=== PATIENT | female | born 1955 | race African-American/Black ===

== ENCOUNTER 2019-03-16 20:19 | Inpatient (IN) | payer OTHER ==
--- OUTSIDE RECORDS SUMMARY | 2019-03-16 20:21 | XMS REPORT ---
:1955 [facility] Team Providers Name Role Phone Laron Mendez Provider Role Unavailable Allergies, Adverse Reactions, Alerts Substance Reaction Event Type Hydrocodone Bitartrate stomach upset Drug Allergy Problems Problem Type Condition Code Onset Dates Condition Status Assessment Primary osteoarthritis of left knee M17.12 Active Assessment Primary osteoarthritis of right M17.11 Active knee Assessment Pain, joint, knee, left M25.562 Active Assessment Pain, joint, knee, right M25.561 Active Problem Hypertension, unspecified type I10 Active Problem Gastro-esophageal reflux K21.9 Active Problem Morbid obesity E66.01 Active Problem Controlled type 2 diabetes mellitus E11.9 Active without complication, without long-term current use of insulin Problem Vitamin D deficiency E55.9 Active Problem Diabetes E11.9 Active Problem Benign essential HTN I10 Active Problem Primary osteoarthritis of right M17.11 Active knee Problem Left leg pain M79.605 Active Problem Hyperlipidemia, unspecified E78.5 Active hyperlipidemia type Problem Left shoulder pain, unspecified M25.512 Active chronicity Problem Primary osteoarthritis of left knee M17.12 Active Problem Gastroesophageal reflux disease, K21.9 Active esophagitis presence not specified Problem Dietary counseling and surveillance Z71.3 Active Problem Leukocytosis, unspecified type D72.829 Active Problem Hyperpigmented skin lesion L81.9 Active Problem BMI 50.0-59.9, adult Z68.43 Active Problem Other chronic pain G89.29 Active Problem Pain in right knee M25.561 Active Problem Low back pain M54.5 Active Problem Chronic pain syndrome G89.4 Active Problem Multiple joint pain M25.50 Active Problem Hyperlipemia E78.5 Active Problem Obstructive sleep apnea G47.33 Active Problem Osteoarthritis M19.90 Active Medications Medication Code Code Instructions Start End Status Dosage System Date Date Allopurinol [facility] 70845225095 100 MG Orally Aug 28November Active 1 tablet Once a day 2018 OneTouch SAIC [facility] 61513557922 - Active TEST BLOOD Test [facility]CE [facility] 2 % Transdermal Active 2 applications Twice a day to affected area Tylenol # 3 NDC 0 30-500-15 MG Active 2 tablets as Orally every 6 needed hrs Vytorin [facility] 35449545855 10-20 MG Orally Active 1 tablet in Once daily evening Cozaar [facility] 54886141078 50 MG Orally Active 1 tablet Once a day Ultracet [facility] 18147089956 37.5-325 MG February Active 1 tablet as Orally Twice 30, 17, needed for daily 2017 2018 pain Blood Pressure [facility] 30993441887 - Monitor BP Apr 05, Active as directed Monitor at least 2-3 2018 Automat days per week, as well as prn Vitamin D [facility] 89500975523 2000 UNIT Active 1 capsule Orally Once a day Augmentin [facility] 69927961474 500-125 MG Active not defined Orally Tessalon [facility] 67828278232 100 MG Orally Active 1 capsule as Perles Three times a needed day losartan NDC 0 Active not defined Metformin HCl [facility] 04628273223 500 MG Orally Active 1 tablet with Twice a day meals Low-Dose NDC 0 81 MG Orally Active 1 tablet Aspirin Once a day Amiloride-Hydr [facility] 43130177815 5-50 MG Orally Active 1 tablet with ochlorothiazid Once a day food e OneTouch [facility] 44451096247 - Active TEST BLOOD Delica Lancets SUGAR ONCE 33G DAILY Results No Known Results Summary Purpose eClinicalWorks Submission
--- OUTSIDE RECORDS SUMMARY | 2019-03-16 20:22 | XMS REPORT ---
:1955 Author [facility] Team Providers Name Role Phone Indigo Joel Provider Role Unavailable Allergies, Adverse Reactions, Alerts Substance Reaction Event Type Hydrocodone Bitartrate stomach upset Drug Allergy Problems Problem Type Condition Code Onset Dates Condition Status Assessment Hyperlipidemia, unspecified E78.5 Active hyperlipidemia type Assessment Gastroesophageal reflux disease, K21.9 Active esophagitis presence not specified Assessment Peripheral edema R60.9 Active Assessment Controlled type 2 diabetes mellitus E11.9 Active without complication, without long-term current use of insulin Assessment Depression screening Z13.31 Active Assessment Hypertension, unspecified type I10 Active Problem Hypertension, unspecified type I10 Active Problem Controlled type 2 diabetes mellitus E11.9 Active without complication, without long-term current use of insulin Problem Gastroesophageal reflux disease, K21.9 Active esophagitis presence not specified Problem Vitamin D deficiency E55.9 Active Problem Benign essential HTN I10 Active Problem Left shoulder pain, unspecified M25.512 Active chronicity Problem Diabetes E11.9 Active Problem Dietary counseling and surveillance Z71.3 Active Problem Leukocytosis, unspecified type D72.829 Active Problem Primary osteoarthritis of right M17.11 Active knee Problem Peripheral edema R60.9 Active Problem Chronic pain syndrome G89.4 Active Problem Low back pain M54.5 Active Problem Primary osteoarthritis of left knee M17.12 Active Problem Hyperlipidemia, unspecified E78.5 Active hyperlipidemia type Problem BMI 50.0-59.9, adult Z68.43 Active Problem Hyperpigmented skin lesion L81.9 Active Problem Depression screening Z13.31 Active Problem Left leg pain M79.605 Active Assessment Vitamin D deficiency E55.9 Active Problem Obstructive sleep apnea G47.33 Active Assessment Leukocytosis, unspecified type D72.829 Active Problem Osteoarthritis M19.90 Active Assessment BMI 50.0-59.9, adult Z68.43 Active Problem Other chronic pain G89.29 Active Assessment Morbid obesity E66.01 Active Problem Pain in right knee M25.561 Active Problem Gastro-esophageal reflux K21.9 Active Assessment Chronic pain syndrome G89.4 Active Problem Morbid obesity E66.01 Active Problem Multiple joint pain M25.50 Active Problem Hyperlipemia E78.5 Active Medications Medication Code Code Instructions Start End Status Dosage System Date Date Allopurinol [facility] 96874304767 100 mg Orally October Active 1 tablet Once a day 2019 Blood Pressure [facility] 07560688451 - Monitor BP Apr 05, Active as directed Monitor at least 2-3 2018 Automat days per week, as well as prn Pennsaid [facility] 05275265608 2 % Transdermal Active 2 applications Twice a day to affected area Augmentin [facility] 39842372566 500-125 MG Active not defined Orally Vytorin [facility] 96452001281 10-20 MG Orally Active 1 tablet in Once daily evening Cozaar [facility] 99812193326 50 MG Orally Active 1 tablet Once a day Metformin HCl [facility] 62600479655 500 MG Orally Active 1 tablet with Twice a day meals OneTouch [facility] 65627698742 - Active TEST BLOOD Delica Lancets SUGAR ONCE 33G DAILY OneTouch Ultra [facility] 44044168379 - Active TEST BLOOD Test SUGAR ONCE DAILY Tylenol # 3 NDC 0 30-500-15 MG Active 2 tablets as Orally every 6 needed hrs losartan NDC 0 Active not defined Tessalon [facility] 56723641814 100 MG Orally Active 1 capsule as Perles Three times a needed day Amiloride-Hydr [facility] 51412382017 5-50 MG Orally Active 1 tablet with ochlorothiazid Once a day food e Ultracet [facility] 13476121576 37.5-325 MG FebruaryMar 29, Active 1 tablet as Orally Twice 2018 needed for daily 2017 severe pain Low-Dose NDC 0 81 MG Orally Active 1 tablet Aspirin Once a day Vitamin D [facility] 02228771559 2000 UNIT Active 1 capsule Orally Once a day Results No Known Results Summary Purpose eClinicalWorks Submission
--- OUTSIDE RECORDS SUMMARY | 2019-03-16 20:22 | XMS REPORT ---
:1955 [facility] Team Providers Name Role Phone Laron Mendez Provider Role Unavailable Allergies, Adverse Reactions, Alerts Substance Reaction Event Type Hydrocodone Bitartrate stomach upset Drug Allergy Problems Problem Type Condition Code Onset Dates Condition Status Assessment Primary osteoarthritis of right M17.11 Active knee Assessment Pain, joint, knee, left M25.562 Active Assessment Pain, joint, knee, right M25.561 Active Assessment Primary osteoarthritis of left knee M17.12 Active Problem Hypertension, unspecified type I10 Active [...] End Status Dosage System Date Date Allopurinol [facility] 62265118151 100 MG Orally Aug 28November Active 1 tablet Once a day 2018 OneTouch Vicarious [facility] 21295847347 - Active TEST BLOOD Test [facility] % Transdermal Active 2 applications Twice a day to affected area Tylenol # 3 NDC 0 30-500-15 MG Active 2 tablets as Orally every 6 needed hrs Vytorin [facility] 74413092098 10-20 MG Orally Active 1 tablet in Once daily evening Metformin HCl [facility] 48850180175 500 MG Orally Active 1 tablet with Twice a day meals Blood Pressure [facility] 54351515244 - Monitor BP Apr 05, Active as directed Monitor at least 2-3 2018 Automat days per week, as well as prn Vitamin D [facility] 90868923943 2000 UNIT Active 1 capsule Orally Once a day losartan NDC 0 Active not defined Augmentin [facility] 15074700848 500-125 MG Active not defined Orally Tessalon [facility] 91372435881 100 MG Orally Active 1 capsule as Perles Three times a needed day Low-Dose NDC 0 81 MG Orally Active 1 tablet Aspirin Once a day Amiloride-Hydr [facility] 00420811358 5-50 MG Orally Active 1 tablet with ochlorothiazid Once a day food e Cozaar [facility] 65885723357 50 MG Orally Active 1 tablet Once a day OneTouch [facility] 36076014650 - Active TEST BLOOD Delica Lancets SUGAR ONCE 33G DAILY Results No Known Results Summary Purpose eClinicalWorks Submission
--- OUTSIDE RECORDS SUMMARY | 2019-03-16 20:22 | XMS REPORT ---
:1955 [facility] Team Providers Name Role Phone Laron Mendez Provider Role Unavailable Allergies, Adverse Reactions, Alerts Substance Reaction Event Type Hydrocodone Bitartrate stomach upset Drug Allergy Problems Problem Type Condition Code Onset Dates Condition Status Assessment Pain, joint, knee, right M25.561 Active Assessment Primary osteoarthritis of right M17.11 Active knee Assessment Pain, joint, knee, left M25.562 Active Assessment Primary osteoarthritis of left knee [...] Active Problem Left leg pain M79.605 Active Problem Obstructive sleep apnea G47.33 Active Problem Osteoarthritis M19.90 Active Problem Other chronic pain G89.29 Active Problem Pain in right knee M25.561 Active Problem Gastro-esophageal reflux K21.9 Active Problem Morbid obesity E66.01 Active Problem Multiple joint pain M25.50 Active Problem Hyperlipemia E78.5 Active Medications Medication Code Code Instructions Start End Status Dosage System Date Date losartan NDC 0 Active not defined Metformin HCl [facility] 02432050579 500 MG Orally Active 1 tablet with Twice a day meals Augmentin [place] 68998718080 500-125 MG Active not defined Orally Allopurinol ND 66521063090 100 mg Orally October Active 1 tablet Once a day 2019 OneTouch Ultra [facility] 54951435422 - Active TEST BLOOD Test SUGAR ONCE DAILY Ultracet [facility] 23582382993 37.5-325 MG FebruaryMar 29, Active 1 tablet as Orally Twice 2018 needed for daily 2017 severe pain Vitamin D [facility] 10829264462 2000 UNIT Active 1 capsule Orally Once a day Vytorin [facility] 00922114954 10-20 MG Orally Active 1 tablet in Once daily evening Cozaar [facility] 85916961350 50 MG Orally Active 1 tablet Once a day Pennsaid [facility] 17650622158 2 % Transdermal Active 2 applications Twice a day to affected area Tessalon [facility] 31874805405 100 MG Orally Active 1 capsule as Perles Three times a needed day Tylenol # 3 NDC 0 30-500-15 MG Active 2 tablets as Orally every 6 needed hrs Blood Pressure [facility] 08176311027 - Monitor BP Apr 05, Active as directed Monitor at least 2-3 2018 Automat days per week, as well as prn Low-Dose NDC 0 81 MG Orally Active 1 tablet Aspirin Once a day OneTouch [facility] 66671223008 - Active TEST BLOOD Delica Lancets SUGAR ONCE 33G DAILY Amiloride-Hydr [facility] 24033659628 5-50 MG Orally Active 1 tablet with ochlorothiazid Once a day food e Results No Known Results Summary Purpose eClinicalWorks Submission
--- OUTSIDE RECORDS SUMMARY | 2019-03-16 20:22 | XMS REPORT ---
:1955 Author Organization eClinicalWorks Care Team Providers Name Role Phone Indigo Joel Provider Role Unavailable Allergies No Known Allergies Problems Problem Type Condition Code Onset Dates Condition Status Problem Hypertension, unspecified type I10 Active Problem [...] M25.50 Active Problem Hyperlipemia E78.5 Active Medications No Known Medications Results No Known Results Summary Purpose [employer] Submission
--- OUTSIDE RECORDS SUMMARY | 2019-03-16 20:22 | XMS REPORT ---
[...] Medications Results No Known Results Summary Purpose [facility]ClinicalMiappi Submission
--- OUTSIDE RECORDS SUMMARY | 2019-03-16 20:22 | XMS REPORT ---
:1955 Author Organization eClinicalWorks Care Team Providers Name Role Phone Laron Mendez Provider Role Unavailable Allergies No Known Allergies [...] Medications Results No Known Results Summary Purpose [employer]Clinical[facility] Submission
--- OUTSIDE RECORDS SUMMARY | 2019-03-16 20:22 | XMS REPORT ---
:1955 [facility] Team Providers Name Role Phone Laron Mendez Provider Role Unavailable Allergies, Adverse Reactions, Alerts Substance Reaction Event Type Hydrocodone Bitartrate stomach upset Drug Allergy Problems Problem Type Condition Code Onset Dates Condition Status Assessment Pain, joint, knee, left M25.562 Active Assessment Primary osteoarthritis of right M17.11 Active knee Assessment Pain, joint, knee, right M25.561 Active [...] Start End Status Dosage System Date Date OneTouch ND 65896111238 - Active TEST BLOOD Delica Lancets SUGAR ONCE 33G DAILY OneTouch Ultra ND 24745375916 - Active TEST BLOOD Test SUGAR ONCE DAILY Cozaar [facility] 89306669929 50 MG Orally Active 1 tablet Once a day Amiloride-Hydr ND 25091984913 5-50 MG Orally Active 1 tablet with ochlorothiazid Once a day food e Tessalon [facility] 63532224051 100 MG Orally Active 1 capsule as Perles Three times a needed day Tylenol # 3 NDC 0 30-500-15 MG Active 2 tablets as Orally every 6 needed hrs Low-Dose NDC 0 81 MG Orally Active 1 tablet Aspirin Once a day Blood Pressure [facility] 75993143282 - Monitor BP Apr 05, Active as directed Monitor at least 2-3 2018 Automat days per week, as well as prn losartan ND 0 Active not defined Allopurinol [facility] 82028545763 100 mg Orally October Active 1 tablet Once a day 2019 Vytorin [facility] 44761464330 10-20 MG Orally Active 1 tablet in Once daily evening Metformin HCl [facility] 26186347774 500 MG Orally Active 1 tablet with Twice a day meals Augmentin [facility] 31451158386 500-125 MG Active not defined Orally Pennsaid [facility] 46564112879 2 % Transdermal Active 2 applications Twice a day to affected area Ultracet [facility] 83381447811 37.5-325 MG FebruaryMar 29, Active 1 tablet as Orally Twice 2018 needed for daily 2017 severe pain Vitamin D [facility] 05805555763 2000 UNIT Active 1 capsule Orally Once a day Results No Known Results Summary Purpose eClinicalWorks Submission
--- OUTSIDE RECORDS SUMMARY | 2019-03-16 20:22 | XMS REPORT ---
:1955 [facility] Team Providers Name Role Phone [...] Start End Status Dosage System Date Date Low-Dose NDC 0 81 MG Orally Active 1 tablet [facility]irin [facility] 68204722774 2 % Transdermal Active 2 applications Twice a day to affected area Vitamin D [facility] 59807657518 2000 UNIT Active 1 capsule Orally Once a day losartan ND 0 Active not defined Amiloride-Hydr [facility] 55762821967 5-50 MG Orally Active 1 tablet with ochlorothiazid Once a day food e Cozaar [facility] 00605362862 50 MG Orally Active 1 tablet Once a day Vytorin [facility] 33546197464 10-20 MG Orally Active 1 tablet in Once daily evening Tessalon [facility] 17340991835 100 MG Orally Active 1 capsule as Perles Three times a needed day Augmentin [facility] 88669332449 500-125 MG Active not defined Orally OneTouch [facility] 83741276092 - Active TEST BLOOD Delica Lancets SUGAR ONCE 33G DAILY OneTouch Ultra [facility] 98723986572 - Active TEST BLOOD Test SUGAR ONCE DAILY Blood Pressure [facility] 53111202273 - Monitor BP Apr 05, Active as directed Monitor at least 2-3 2018 Automat days per week, as well as prn Tylenol # 3 ND 0 30-500-15 MG Active 2 tablets as Orally every 6 needed hrs Metformin HCl [facility] 73565439077 500 MG Orally Active 1 tablet with Twice a day meals Allopurinol [facility] 08356629461 100 mg Orally October Active 1 tablet Once a day 2019 Ultracet [facility] 24817992728 37.5-325 MG FebruaryMar 29, Active 1 tablet as Orally Twice 2018 needed for daily 2017 severe pain Results No Known Results Summary Purpose eClinicalWorks Submission
[2019-03-16] MEDS ORDERED: LEVALBUTEROL 1.25 MG/3 ML NEB ONE (21:07)
[2019-03-16 21:10] LABS: Absolute Lymphocytes (CBC) 2.3 K/uL (0.7-4.9); Hematocrit 38.5 % (36.0-45.0); Lymphocytes % 22.8 % (15.3-44.8); RBC Red Blood Cell Count 4.76 M/uL (3.86-4.86)
[2019-03-16 21:21] LABS: Protime INR 1.04
[2019-03-16 21:53] LABS: ALT/SGPT 24 U/L (12-78); AST/SGOT 20 U/L (15-37); Albumin 3.2 g/dL (3.4-5.0); Alkaline Phosphatase 74 U/L (45-117); BUN Blood Urea Nitrogen 13 mg/dL (7-18); Bicarbonate 29 mmol/L (21-32); Bilirubin Direct < 0.1 mg/dL (0-0.2); Bilirubin Total 0.2 mg/dL (0.2-1.0); Glucose Level 117 mg/dL (74-106); Magnesium 1.6 mg/dL (1.8-2.4); NT PRO-BNP 156 pg/mL (<125); Potassium 3.5 mmol/L (3.5-5.1); Protein, Total 7.7 g/dL (6.4-8.2); Sodium Level 141 mmol/L (136-145); Troponin (Emerg Dept Use Only) 0.11 ng/mL (0.0-0.045)
[2019-03-16] MEDS ORDERED: ASPIRIN 81 MG CHEWABLE TABLET ONE (22:04)
[2019-03-16] MEDS ORDERED: Magnesium Sulfate 2gm IVPB 2 G/50 ML BAG IV ONE (22:04)
--- NOTE | 2019-03-16 22:05 | ER ---
Nurse's Notes [facility] Name: Reyna Vasques Age: 64 yrs Sex: Female : 1955 Arrival Date: 03/16/2019 Time: 20:22 Bed 15 Private MD: Diagnosis: Acute systolic (congestive) heart failure;Acute diastolic (congestive) heart failure Presentation: 03/16 20:34 Presenting complaint: Patient states: My breathing has been getting more and more short la1 over the last couple months and my legs have been hurting me real bad. They are both swollen but the right one is giving me more trouble. Transition of care: patient was not received from another setting of care. Onset of symptoms was March 16, 2019. Risk Assessment: Do you want to hurt yourself or someone else? Patient reports no desire to harm self or others. Initial Sepsis Screen: Does the patient meet any 2 criteria? No. Patient's initial sepsis screen is negative. Does the patient have a suspected source of infection? No. Patient's initial sepsis screen is negative. Care prior to arrival: None. 20:34 Method Of Arrival: Wheelchair la1 20:34 Acuity: BARBARA 3 la1 Historical: - Allergies: 20:34 Codeine; la1 20:34 Hydrocodone-Acetaminophen; la1 - PMHx: 20:34 Diabetes - NIDDM; Hypertension; la1 - Immunization history:: Adult Immunizations up to date. - Social history:: Smoking status: Patient/guardian denies using tobacco. - Ebola Screening: : No symptoms or risks identified at this time. Screenin:11 Abuse screen: Denies threats or abuse. Nutritional screening: No deficits noted. jb4 Tuberculosis screening: No symptoms or risk factors identified. Fall Risk None identified. Assessment: 21:11 General: Appears in no apparent distress. uncomfortable, Behavior is calm, cooperative. jb4 Pain: Denies pain. Neuro: Level of Consciousness is awake, alert, obeys commands, Oriented to person, place, time, situation. Cardiovascular: Patient's skin is warm and dry. Rhythm is sinus tachycardia. Respiratory: Airway is patent Respiratory effort is even, labored, Respiratory pattern is regular, symmetrical, Breath sounds are clear bilaterally. GI: No deficits noted. No signs and/or symptoms were reported involving the gastrointestinal system. : No deficits noted. No signs and/or symptoms were reported regarding the genitourinary system. EENT: No deficits noted. No signs and/or symptoms were reported regarding the EENT system. Derm: Skin is intact, Skin is dry, Skin is normal, Skin temperature is warm. Musculoskeletal: Circulation, motion, and sensation intact. Range of motion: intact in all extremities. 21:30 Reassessment: Patient appears in no apparent distress at this time. Patient and/or jb4 family updated on plan of care and expected duration. Pain level reassessed. Patient is alert, oriented x 3, equal unlabored respirations, skin warm/dry/pink. Respiratory: Airway is patent Respiratory effort is even, unlabored, Respiratory pattern is regular, symmetrical, Breath sounds are clear bilaterally. 22:30 Reassessment: Patient appears in no apparent distress at this time. No changes from jb4 previously documented assessment. Patient and/or family updated on plan of care and expected duration. Pain level reassessed. Patient is alert, oriented x 3, equal unlabored respirations, skin warm/dry/pink. 23:30 Reassessment: Patient appears in no apparent distress at this time. Patient and/or jb4 family updated on plan of care and expected duration. Pain level reassessed. Patient is alert, oriented x 3, equal unlabored respirations, skin warm/dry/pink. 03/17 00:02 Reassessment: Report called to PRADIP Malone. jb4 Vital Signs: 03/16 20:37 BP 104 / 79; Pulse 118; Resp 20; Temp 98.2(O); Pulse Ox 97% on R/A; Weight 154.22 kg; la1 Height 5 ft. 4 in. (162.56 cm); 21:30 BP 119 / 60; Pulse 116; Resp 20; Pulse Ox 100% on R/A; jb4 22:30 BP 100 / 60; Pulse 122; Resp 24; Pulse Ox 93% on R/A; jb4 23:42 BP 104 / 62; Pulse 120; Resp 21; Pulse Ox 96% on R/A; jb4 20:37 Body Mass Index 58.36 (154.22 kg, 162.56 cm) la1 ED Course: 20:22 Patient arrived in ED. ds1 20:34 Arm band placed on left wrist. la1 20:35 Triage completed. la1 20:41 Mickail, Orion, PA is PHCP. [facility] 20:41 Bharathi Adamson MD is Attending Physician. [facility] 21:03 Chadd Llamas, RN is Primary Nurse. jb4 21:05 Initial lab(s) drawn, by me, sent to lab. EKG done, by ED staff, reviewed by Orion MUHAMMAD. Inserted saline lock: 20 gauge in right antecubital area, using aseptic technique. Blood collected. 21:06 Patient has correct armband on for positive identification. Placed in gown. Bed in low ak1 position. Call light in reach. Side rails up X2. Adult w/ patient. child monitor on. Pulse ox on. NIBP on. Door closed. Lights dimmed. Warm blanket given. 21:13 XRAY Chest (1 view) In Process Unspecified. EDMS 22:03 Anjana West MD is Hospitalizing Provider. [facility] 22:15 Assisted to bedside commode. ak1 22:19 Notified Nurse Practitioner and/or Physician Rn Cvicu of a critical lab result(s), aa1 d-dimer [id number]. 23:38 CT completed. Patient tolerated procedure well. Patient moved to CT via stretcher. Patient moved back from CT. 23:49 No provider procedures requiring assistance completed. Patient admitted, IV remains in jb4 place. Administered Medications: 21:05 Drug: Xopenex (3) 1.25 mg Route: Inhalation; la1 21:30 Follow up: Response: No adverse reaction jb4 22:15 Drug: Aspirin Chewable Tablet 324 mg Route: PO; jb4 23:57 Follow up: Response: No adverse reaction jb4 22:49 Drug: Lasix 20 mg Route: IVP; Site: right antecubital; jb4 23:57 Follow up: Response: No adverse reaction jb4 22:51 Drug: Magnesium Sulfate 2 grams Route: IVPB; Infused Over: 2 hrs; Site: right jb4 antecubital; 23:56 Follow up: Response: No adverse reaction; IV Status: Infusion continued upon admission; jb4 IV Intake: 25ml Intake: 23:56 IV: 25ml; Total: 25ml. jb4 Outcome: 22:04 Decision to Hospitalize by Provider. alis 03/17 00:32 Admitted to Tele accompanied by nurse, via wheelchair, room 409, with chart, Report jb4 called to PRADIP Malone Condition: stable Discharge instructions given to patient, family, Instructed on the need for admit, Demonstrated understanding of instructions. 00:33 Patient left the ED. jb4 Signatures: Dispatcher [employer] EDMS Rola Spring RN RN aa1 Orion Glez PA PA jmm Hagler, Ervin Yan, Katie ds1 Juve Gallegos RN RN la1 Keim Johnson RN RN ak1 Chadd Llamas RN RN jb4 Corrections: (The following items were deleted from the chart) 03/16 22:55 21:11 General: Appears in no apparent distress. uncomfortable, Behavior is calm, jb4 cooperative, la1 : 21:11 Pain: Denies pain. al1 4 : 21:11 Neuro: Level of Consciousness is awake, alert, obeys commands, Oriented to jb4 person, place, time, situation, al1 : 21:11 Cardiovascular: Patient's skin is warm and dry. Rhythm is sinus tachycardia la1 jb4 :55 21:11 Respiratory: Airway is patent Respiratory effort is even, labored, Respiratory jb4 pattern is regular, symmetrical, Breath sounds are clear bilaterally. la1 : 21:11 GI: No deficits noted. No signs and/or symptoms were reported involving the jb4 gastrointestinal system. la1 : 21:11 : No deficits noted. No signs and/or symptoms were reported regarding the jb4 genitourinary system. la1 : 21:11 EENT: No deficits noted. No signs and/or symptoms were reported regarding the jb4 EENT system. la1 :55 21:11 Derm: Skin is intact, Skin is dry, Skin is normal, Skin temperature is warm la1 jb4 :55 21:11 Musculoskeletal: Circulation, motion, and sensation intact. Range of motion: jb4 intact in all extremities, la1
--- NOTE | 2019-03-16 22:05 | EDPHYS ---
Physician Documentation [facility] Name: Reyna Vasques Age: 64 yrs Sex: Female : 1955 Arrival Date: 03/16/2019 Time: 20:22 Bed 15 Private MD: ED Physician Bharathi Adamson HPI: 03/16 20:47 This 64 yrs old Black Female presents to ER via Wheelchair with complaints of Breathing jmm Difficulty. 20:47 The patient has shortness of breath at rest. Onset: The symptoms/episode began/occurred jmm gradually, 2 week(s) ago. The patient's shortness of breath is aggravated by nothing, is alleviated by nothing. This is a 64 year old female with a history of dm, htn that presents to the ED with complaints of shortness of breath worsening over the past 2 week. Patient denies chest pain. States symptoms worsened today. Alos complains of swelling to her legs. . Historical: - Allergies: 20:34 Codeine; la1 20:34 Hydrocodone-Acetaminophen; la1 - PMHx: 20:34 Diabetes - NIDDM; Hypertension; la1 - Immunization history:: Adult Immunizations up to date. - Social history:: Smoking status: Patient/guardian denies using tobacco. - Ebola Screening: : No symptoms or risks identified at this time. ROS: 20:47 Constitutional: Negative for fever, chills, and weight loss, Cardiovascular: Negative jmm for chest pain, palpitations, and edema. 20:47 Abdomen/GI: Negative for abdominal pain, nausea, vomiting, diarrhea, and constipation. 20:47 Respiratory: Positive for shortness of breath. 20:47 MS/extremity: Positive for swelling. 20:47 All other systems are negative. Exam: 20:47 Constitutional: This is a well developed, well nourished patient who is awake, alert, jmm and in no acute distress. Head/Face: atraumatic. Eyes: EOMI, no conjunctival erythema appreciated ENT: Moist Mucus Membranes Neck: Trachea midline, Supple Chest/axilla: Normal chest wall appearance and motion. 20:47 Cardiovascular: Rate: tachycardic, Rhythm: regular. 20:47 Respiratory: the patient does not display signs of respiratory distress, Respirations: normal, Breath sounds: rales, that are mild, are scattered. 20:47 Abdomen/GI: Inspection: obese Bowel sounds: normal, Palpation: abdomen is soft and non-tender, in all quadrants. 20:47 Musculoskeletal/extremity: bilateral pedal edema. 20:47 Skin: Appearance: Color: normal in color. 20:47 Neuro: Orientation: is normal, Mentation: is normal, Memory: is normal. 20:47 Psych: Behavior/mood is pleasant, cooperative. Vital Signs: 20:37 BP 104 / 79; Pulse 118; Resp 20; Temp 98.2(O); Pulse Ox 97% on R/A; Weight 154.22 kg; la1 Height 5 ft. 4 in. (162.56 cm); 21:30 BP 119 / 60; Pulse 116; Resp 20; Pulse Ox 100% on R/A; jb4 22:30 BP 100 / 60; Pulse 122; Resp 24; Pulse Ox 93% on R/A; jb4 23:42 BP 104 / 62; Pulse 120; Resp 21; Pulse Ox 96% on R/A; jb4 20:37 Body Mass Index 58.36 (154.22 kg, 162.56 cm) la1 MDM: 20:47 Patient medically screened. [facility] 22:01 Data reviewed: vital signs, nurses notes. Counseling: I had a detailed discussion with peggy the patient and/or guardian regarding: the historical points, exam findings, and any diagnostic results supporting the discharge/admit diagnosis, lab results, the need for further work-up and treatment in the hospital. ED course: I discussed the patient with Dr. West whom accepted admission. . 03/16 20:46 Order name: Basic Metabolic Panel; Complete Time: 21:54 [facility] 03/16 20:46 Order name: CBC with Diff; Complete Time: 21:21 [facility] 03/16 20:46 Order name: LFT's; Complete Time: 21:54 [facility] 03/16 20:46 Order name: Magnesium; Complete Time: 21:54 [facility] 03/16 20:46 Order name: NT PRO-BNP; Complete Time: 21:54 [facility] 03/16 20:46 Order name: PT-INR; Complete Time: 21:24 [facility] 03/16 20:46 Order name: Troponin (emerg Dept Use Only); Complete Time: 21:54 [facility] 03/16 20:46 Order name: XRAY Chest (1 view); Complete Time: 10:02 [facility] 03/16 22:00 Order name: D-Dimer; Complete Time: 10:02 [facility] 03/16 22:58 Order name: Urine Dipstick--Ancillary (enter results); Complete Time: 10:02 [facility] 03/16 23:10 Order name: CBC with Automated Diff [facility] 03/16 23:10 Order name: CBC with Automated Diff; Complete Time: 10:02 [facility] 03/16 23:10 Order name: Comprehensive Metabolic Panel [facility] 03/16 23:10 Order name: Comprehensive Metabolic Panel; Complete Time: 10:02 [facility] 03/16 20:46 Order name: EKG; Complete Time: 20:49 [facility] 03/16 20:46 Order name: Cardiac monitoring; Complete Time: 21:05 [facility] 03/16 20:46 Order name: EKG - Nurse/Tech; Complete Time: 21:05 [facility] 03/16 20:46 Order name: IV Saline Lock; Complete Time: 21:06 [facility] 03/16 20:46 Order name: Labs collected and sent; Complete Time: 21:06 [facility] 03/16 20:46 Order name: O2 Per Protocol; Complete Time: 21:06 [facility] 03/16 20:46 Order name: O2 Sat Monitoring; Complete Time: 21:06 [facility] 03/16 22:23 Order name: CT Chest For PE Angio [facility] 03/16 23:10 Order name: CONS Pharmacy Consult [facility] 03/16 23:10 Order name: Regular [facility] 03/16 23:10 Order name: EKG Electrocardiogram [facility] 03/16 23:10 Order name: EKG Electrocardiogram [facility] Administered Medications: 21:05 Drug: Xopenex (3) 1.25 mg Route: Inhalation; la1 21:30 Follow up: Response: No adverse reaction jb4 22:15 Drug: Aspirin Chewable Tablet 324 mg Route: PO; jb4 23:57 Follow up: Response: No adverse reaction jb4 22:49 Drug: Lasix 20 mg Route: IVP; Site: right antecubital; jb4 23:57 Follow up: Response: No adverse reaction jb4 22:51 Drug: Magnesium Sulfate 2 grams Route: IVPB; Infused Over: 2 hrs; Site: right jb4 antecubital; 23:56 Follow up: Response: No adverse reaction; IV Status: Infusion continued upon admission; jb4 IV Intake: 25ml Disposition: 03/17 02:36 Co-signature as Attending Physician, Bharathi Adamson MD. Disposition: 03/16/19 22:04 Hospitalization ordered by Anjana West for Inpatient Admission. Preliminary diagnosis are Acute systolic (congestive) heart failure, Acute diastolic (congestive) heart failure. - Bed requested for Telemetry/MedSurg (Inpatient). - Status is Inpatient Admission. jb4 - Condition is Stable. - Problem is new. - Symptoms are unchanged. UTI on Admission? No Signatures: Dispatcher [employer] EDMS Orion Glez PA PA [facility] Juve Gallegos, RN RN laSabra Edwards RN RN Chadd Llamas RN RN [facility] Snow, MD FREDI Garvin Corrections: (The following items were deleted from the chart) 03/16 23:36 22:04 Hospitalization Ordered by Anjana West MD for Inpatient Admission. Preliminary cg diagnosis is Acute systolic (congestive) heart failure; Acute diastolic (congestive) heart failure. Bed requested for Telemetry/MedSurg (Inpatient). Status is Inpatient Admission. Condition is Stable. Problem is new. Symptoms are unchanged. UTI on Admission? No. [facility] 03/17 00:33 03/16 23:36 03/16/2019 22:04 Hospitalization Ordered by Anjana West MD for Inpatient jb4 Admission. Preliminary diagnosis is Acute systolic (congestive) heart failure; Acute diastolic (congestive) heart failure. Bed requested for Telemetry/MedSurg (Inpatient). Status is Inpatient Admission. Condition is Stable. Problem is new. Symptoms are unchanged. UTI on Admission? No. cg
[2019-03-16] MEDS ORDERED: FUROSEMIDE 20 MG/ 2ML VIAL ONE (22:46)
[2019-03-16 23:01] LABS: Urine Blood NEGATIVE (NEG); Urine Glucose NEGATIVE (NEG); Urine Protein NEGATIVE (NEG)
[2019-03-16] MEDS ORDERED: ACETAMINOPHEN 500 MG TAB PO PRN (23:04)
[2019-03-16] MEDS ORDERED: MORPHINE 2 MG/ML SYR IV PRN (23:04)
[2019-03-16] MEDS ORDERED: NA CHLORIDE 0.9% 1,000 ML IV SCH (23:45)
[2019-03-17 00:39] VITALS: BMI 59.4
[2019-03-17] MEDS: IPRATROPIUM BROM 0.5MG/2.5ML NEB SCH ×4 (02:00→20:20)
[2019-03-17 06:00] LABS: Absolute Lymphocytes (CBC) 2.4 K/uL (0.7-4.9); Basophils % 0.4 % (0-1.3); Hematocrit 35.6 % (36.0-45.0); Lymphocytes % 23.1 % (15.3-44.8); RBC Red Blood Cell Count 4.45 M/uL (3.86-4.86)
[2019-03-17 06:20] LABS: Bilirubin Total 0.3 mg/dL (0.2-1.0); Potassium 3.5 mmol/L (3.5-5.1); Protein, Total 7.3 g/dL (6.4-8.2)
--- NOTE | 2019-03-17 07:17 | P.HP ---
Certification for Inpatient Patient admitted to: Observation With expected LOS: <2 Midnights Patient will require the following post-hospital care: None Practitioner: I am a practitioner with admitting privileges, knowledge of patient current condition, hospital course, and medical plan of care. Services: Services provided to patient in accordance with Admission requirements found in Title 42 Section 412.3 of the Code of Federal Regulations Patient History Date of Service: 03/17/19 Reason for admission: Shortness of breath History of Present Illness: patient is a 64-year-old female who came to the hospital with difficulty breathing. Her respiratory status has slowly worsened over the last couple of months. She said over the last week it has been much worse. She decided to come into the hospital for further evaluation. In the emergency room she had multiple diagnostic studies including chest x-ray and a CT scan of the chest. The CT scan was completely unremarkable. There was no pneumonia, no pulmonary embolism, no cardiomegaly, no pulmonary edema, etc. Patient's BNP was also normal. However, patient exhibits signs of CHF with orthopnea, PND, and dyspnea on exertion which has worsened over the last week. Patient also has some swelling in the lower extremities. The shortness of breath and swelling were more pronounced when she went on a vacation to [place]. She was having a hard time catching her breath. She decided to come into the hospital for further evaluation. Allergies codeine Allergy (Verified 10/24/16 11:03) stomach pain hydrocodone [Hydrocodone] Allergy (Verified 10/24/16 11:03) Nausea/Vomiting Home Medications: Amiloride/Hydrochlorothiazide [Amiloride HCl-Hctz 5-50 mg Tab] 1 each PO DAILY 07/23/12 Ezetimibe/Simvastatin [Vytorin 10-20 mg Tablet] 1 each PO BEDTIME 07/23/12 Losartan Potassium 50 mg PO DAILY 07/23/12 Metformin HCl [Glucophage*] 500 mg PO BID 07/23/12 Aspirin 81 mg PO DAILY 10/07/15 Cholecalciferol (Vitamin D3) [Vitamin D3] 1,000 unit PO DAILY 10/20/16 Acetaminophen [Tylenol Extra Strength] 500 mg PO BID PRN 03/17/19 Allopurinol [Zyloprim] 100 mg PO DAILY 03/17/19 Tramadol HCl/Acetaminophen [Ultracet Tablet] 1 each PO BID 03/17/19 - Past Medical/Surgical History Has patient received pneumonia vaccine in the past: No Diabetic: Yes -: HTN -: Hyperlipedemia -: NIDDM -: Hernia -: Tubal ligation -: hernia repair - Family History Mother Medical History: Hypertension - Social History Smoking Status: Never smoker Alcohol use: No CD- Drugs: No Caffeine use: Yes Place of Residence: Home Review of Systems 10-point ROS is otherwise unremarkable Physical Examination - Vital Signs Temperature: 98.6 F Blood Pressure: 125/56 Pulse: 108 Respirations: 19 Pulse Ox (%): 95 - Physical Exam General: Alert, In no apparent distress, Oriented x3 HEENT: Atraumatic, PERRLA, Mucous membr. moist/pink, EOMI, Sclerae nonicteric Neck: Supple, 2+ carotid pulse no bruit, No LAD, Without JVD or thyroid abnormality Respiratory: Diminished, Expiratory wheezes Cardiovascular: Regular rate/rhythm, Normal S1 S2, No murmurs Gastrointestinal: Normal bowel sounds, Soft and benign, Non-distended, No tenderness Musculoskeletal: No clubbing, No swelling, No tenderness Integumentary: Tenderness/swelling Neurological: Normal gait, Normal speech, Normal strength at 5/5 x4 extr, Normal tone, Sensation intact, Cranial nerves 3-12 intact, Normal affect Lymphatics: No axilla or inguinal lymphadenopathy - Studies Laboratory Data (last 24 hrs) 03/16/19 21:05: PT 12.2, INR 1.04 03/16/19 21:05: WBC 10.2, Hgb 12.3, Hct 38.5, Plt Count 252 03/16/19 21:05: Sodium 141, Potassium 3.5, BUN 13, Creatinine 1.09, Glucose 117 H, Magnesium 1.6 L, Total Bilirubin 0.2, AST 20, ALT 24, Alkaline Phosphatase 74 Assessment & Plan - Problems (Diagnosis) (1) Dyspnea on exertion Current Visit: Yes Status: Acute (2) Orthopnea Current Visit: Yes Status: Acute (3) PND (paroxysmal nocturnal dyspnea) Current Visit: Yes Status: Acute (4) Type 2 diabetes mellitus Current Visit: Yes Status: Acute (5) Morbid obesity Current Visit: No Status: Acute - Plan 1. Echocardiogram 2. Outpatient Pulmonary evaluation for CPAP/ she has a diagnosis of sleep apnea 3. We will start patient on a Beta sheng 4. Cardiology consultation if echocardiogram is abnormal 5. gentle diuresis 6. Strict I's and O's 7. Repeat CXR 8. Daily weights 9. Education regarding diet and treatment of congestive heart failure - Advance Directives Does patient have a Living Will: No Does patient have a Durable POA for Healthcare: No
[2019-03-17] MEDS: ALBUTEROL 2.5 MG/3 ML NEB SOL NEB PRN ×2 (08:05→13:50)
[2019-03-17] MEDS: FUROSEMIDE 20 MG/ 2ML VIAL IV SCH ×2 (08:55→20:00)
--- NOTE | 2019-03-17 08:55 | RAD REPORT ---
EXAM DESCRIPTION: RAD - Chest Single View - 03/16/2019 9:11 pm CLINICAL HISTORY: Shortness of breath COMPARISON: October 2015 TECHNIQUE: AP portable chest image was obtained 2109 hours . FINDINGS: No peripheral mass or consolidation. Portable technique and body habitus contribute to acc entuate chest findings. Heart size is upper normal. Vasculature is mildly prominent. Fullness of each hilum matches prior imaging. No measurable pleural effusion and no pneumothorax. Shoulder joint dege nerative change noted and progressive from 2016. Thoracic spine degenerative changes are present but poorly visualized on this examination. No acute aortic findings suspected. IMPRESSION: No acute cardiopulmonary finding. Large body habitus and portable technique cause heart, vascular and lung changes to wall be accentuat ed. No clear change from the prior study.
[2019-03-17] MEDS ORDERED: ACETAMINOPHEN 500 MG TAB PO PRN (10:03)
--- NOTE | 2019-03-17 10:21 | EKG ---
Test Date: 2019-03-16 Test Time: 20:56:54 Treating Engineer Helper: SABA MEASUREMENT RESULTS: Intervals: Rate: 119 TX: 148 QRSD: 92 QT: 336 QTc: 472 [place]: P: 52 TX: 148 QRS: 10 T: 60 INTERPRETIVE STATEMENTS: Sinus tachycardia Possible Anterior infarct, age undetermined Abnormal ECG Compared to ECG 10/20/2016 16:33:31 Sinus rhythm no longer present Myocardial infarct finding still present Electronically Signed On 03-17-19 10:20:23 CDT by Lam Beck
[2019-03-17] MEDS: ALLOPURINOL 100 MG TAB PO SCH (11:13)
[2019-03-17] MEDS: TRAMADOL 37.5mg/APAP 325mg PER TAB PO SCH ×2 (11:14→21:00)
[2019-03-17] MEDS: ASPIRIN 81 MG CHEWABLE TABLET PO SCH (11:15)
[2019-03-17] MEDS: ONDANSETRON 4 MG/2 ML VIAL IV PRN (11:15)
[2019-03-17] MEDS: LOSARTAN POTASSIUM 50 MG TABLET PO SCH (11:15)
--- NOTE | 2019-03-17 15:04 | RAD REPORT ---
EXAM DESCRIPTION: RAD - Chest Single View - 03/17/2019 2:01 pm CLINICAL HISTORY: Abdominal pain, shortness of breath COMPARISON: March 16 TECHNIQUE: AP portable chest image was obtained 1258 hours . FINDINGS: Lung volumes are diminished compared to the prior study. Large body habitus and portable t echnique further accentuate chest findings. New or progressive lung parenchymal process is not suspec amirah. Hilar fullness has not changed. Heart and vasculature are normal. No measurable pleural effusion and no pneumothorax. No acute bony abnormality seen. No acute aortic findings suspected. IMPRESSION: No acute cardiopulmonary process. No significant change from comparison.
[2019-03-17] MEDS ORDERED: PNEUMOCOCCAL VACCINE 0.5 ML IMVAC ONE (18:00)
[2019-03-17] MEDS ORDERED: GLUCAGON 1 MG/VIAL IM PRN (18:14)
[2019-03-17] MEDS ORDERED: D50W 25 GM/50 ML SYRINGE IV PRN (18:14)
[2019-03-17] MEDS: INSULIN -REGULAR HUMAN 50 UNIT/0.5 ML ML SQ SCH (20:32)
[2019-03-17] MEDS ORDERED: NA CHLORIDE 0.9% 250 ML IV ONE (20:36)
[2019-03-18] MEDS ORDERED: GUAIFENESIN/CODEINE 5ML UCUP PO PRN (00:10)
[2019-03-18] MEDS: IPRATROPIUM BROM 0.5MG/2.5ML NEB SCH ×4 (01:15→20:30)
[2019-03-18] MEDS: INSULIN -REGULAR HUMAN 50 UNIT/0.5 ML ML SQ SCH ×4 (07:30→20:43)
[2019-03-18] MEDS: FUROSEMIDE 20 MG/ 2ML VIAL IV SCH ×2 (09:53→20:42)
[2019-03-18] MEDS: LOSARTAN POTASSIUM 50 MG TABLET PO SCH (09:53)
[2019-03-18] MEDS: TRAMADOL 37.5mg/APAP 325mg PER TAB PO SCH ×2 (09:53→20:40)
[2019-03-18] MEDS: ALLOPURINOL 100 MG TAB PO SCH (09:53)
[2019-03-18] MEDS: ASPIRIN 81 MG CHEWABLE TABLET PO SCH (09:53)
--- NOTE | 2019-03-18 11:09 | RAD REPORT ---
EXAM DESCRIPTION: CT - Chest For Pe Angio - 03/17/2019 6:21 am CLINICAL HISTORY: Shortness of breath, elevated d-dimer COMPARISON: None. TECHNIQUE: CT CHEST ANGIOGRAPHY WITH IV CONTRAST on 03/16/2019 10:23 PM CDT. MIPS reconstructions wer e generated. This exam was performed according to our departmental dose-optimization program, which includes autom ated exposure control, adjustment of the mA and/or kV according to patient size and/or use of iterati ve reconstruction technique. MIP images were generated. FINDINGS: Thoracic aorta is normal in course and caliber without aneurysm or dissection. Pulmonary a rteries are poorly opacified. There are no large central filling defects. The heart is normal in size. There is no pericardial effusion. Intrathoracic lymph nodes are not enla rged. There is no pleural effusion, pleural thickening or pneumothorax. Central airways are patent. Lungs a re clear with no consolidation, mass or interstitial lung disease. There are no acute abnormalities within the limited images of the upper abdomen. There are no acute osseous findings. No suspicious bony lesions. IMPRESSION: No aortic dissection or aneurysm. No large or central pulmonary embolus. No definite pne umonia. Electronically signed by: Donald Mohamud MD 03/17/2019 12:07 AM CDT Due to temporary technical issues with the PACS/Fluency reporting system, reports are being signed by the in house radiologist as a courtesy to ensure prompt reporting. The interpreting radiologist is f ully responsible for the content of the report.
--- NOTE | 2019-03-18 11:49 | P.PN ---
Subjective Date of Service: 03/18/19 Chief Complaint: Shortness of breath Patient seen and examined at bedside. No family at bedside. Chart reviewed and case discussed with nursing staff. Patient continues report shortness of breath, especially on exertion. She reports that she is unable to walk to her bathroom from the bed due to shortness of breath. Continues to be on oxygen at this time. States that she is not on any oxygen at home Review of Systems 10-point ROS is otherwise unremarkable Physical Examination - Vital Signs Temperature: 97.9 F Blood Pressure: 117/64 Pulse: 110 Respirations: 22 Pulse Ox (%): 94 - Physical Exam General: Alert, In no apparent distress (At rest), Oriented x3, Obese HEENT: Atraumatic, PERRLA, EOMI Neck: Supple, JVD not distended Respiratory: Diminished Cardiovascular: Regular rate/rhythm, Normal S1 S2 Gastrointestinal: Normal bowel sounds, No tenderness Musculoskeletal: No tenderness Integumentary: No rashes Neurological: Normal speech, Normal tone, Normal affect Lymphatics: No axilla or inguinal lymphadenopathy Assessment And Plan - Current Problems (Diagnosis) (1) Dyspnea on exertion Current Visit: Yes Status: Acute Plan: This was likely secondary to progressive heart failure versus morbid obesity versus sleep apnea -echocardiogram ordered, pending -CT scan of the chest negative for any acute abnormalities, including pulmonary embolism. -we will get cardiology consultation if the echocardiogram is abnormal. -continue IV diuresis with Lasix at this time. -continue fluid restriction and strict input/output monitor -continue medical management of heart failure at this time. (2) Orthopnea Current Visit: Yes Status: Acute (3) PND (paroxysmal nocturnal dyspnea) Current Visit: Yes Status: Acute (4) Type 2 diabetes mellitus Current Visit: Yes Status: Acute Plan: Continue Accu-Cheks and mild sliding scale at this time. Will adjust as needed. Qualifiers: Diabetes mellitus usp insulin use: without usp use Diabetes mellitus complication status: with hyperglycemia Qualified Code(s): E11.65 - Type 2 diabetes mellitus with hyperglycemia (5) Morbid obesity Current Visit: No Status: Chronic Plan: Dietitian consult placed -counseled on dietary modifications and lifestyle modifications - Plan DVT prophylaxis: Lovenox GI prophylaxis: Not needed Diet: Heart healthy/diabetic Disposition: Pending symptomatic improvement. Anticipate discharge in the next 24-48 hr pending clinical improvement.
--- NOTE | 2019-03-18 12:47 | ECHO ---
HEIGHT: 5 ft 4 in WEIGHT: 346 lb 8 oz DATE OF STUDY: 03/18/[address]: Jen Díaz MD 2-DIMENSIONAL: YES M.MODE: YES DOPPLER: YES COLOR FLOW: YES TDS: YES PORTABLE: NO DEFINITY: NO BUBBLE STUDY: NO DIAGNOSIS: SHORTNESS OF BREATH CARDIAC HISTORY: CATHERIZATION: NO SURGERY: NO PROSTHETIC VALVE: NO PACEMAKER: NO MEASUREMENTS (cm) DIASTOLIC (NORMALS) SYSTOLIC (NORMALS) IVSd 1.0 (0.6-1.2) LA Diam (1.9-4.0) LVEF 50% LVIDd 3.8 (3.5-5.7) LVIDs 2.9 (2.0-3.5) %FS 25% LVPWd 1.3 (0.6-1.2) Ao Diam 2.3 (2.0-3.7) 2 DIMENSIONAL ASSESSMENT: RIGHT ATRIUM: NORMAL LEFT ATRIUM: NORMAL RIGHT VENTRICLE: NORMAL LEFT VENTRICLE: NORMAL TRICUSPID VALVE: NORMAL MITRAL VALVE: NORMAL PULMONIC VALVE: NORMAL AORTIC VALVE: NORMAL PERICARDIAL EFFUSION: NONE AORTIC ROOT: NORMAL LEFT VENTRICULAR WALL MOTION: NORMAL DOPPLER/COLOR FLOW: NORMAL, BUT STUDY WAS LIMITED. TECHNICALLY DIFFICULT STUDY. COMMENTS: NORMAL 2D ECHOCARDIOGRAM WITH LIMITED CARDIAC DOPPLER. TECHNOLOGIST: Ruthie HERNANDEZ
[2019-03-18] MEDS: ONDANSETRON 4 MG/2 ML VIAL IV PRN (20:42)
[2019-03-19] MEDS: IPRATROPIUM BROM 0.5MG/2.5ML NEB SCH ×4 (01:55→20:00)
[2019-03-19] MEDS ORDERED: MAGNESIUM HYDROXIDE 8% 30 ML PO ONE (06:43)
[2019-03-19] MEDS: BENZONATATE 100 MG CAP PO PRN ×2 (07:28→23:53)
[2019-03-19] MEDS: INSULIN -REGULAR HUMAN 50 UNIT/0.5 ML ML SQ SCH ×4 (07:30→21:00)
[2019-03-19] MEDS: FUROSEMIDE 20 MG/ 2ML VIAL IV SCH ×2 (08:29→20:00)
[2019-03-19] MEDS: ALLOPURINOL 100 MG TAB PO SCH (08:30)
[2019-03-19] MEDS: ALBUTEROL 2.5 MG/3 ML NEB SOL NEB PRN ×2 (08:30→14:45)
[2019-03-19] MEDS: ASPIRIN 81 MG CHEWABLE TABLET PO SCH (08:30)
[2019-03-19] MEDS: DOCUSATE NA 100 MG CAP PO SCH ×2 (08:30→21:39)
[2019-03-19] MEDS: TRAMADOL 37.5mg/APAP 325mg PER TAB PO SCH ×2 (08:30→21:39)
[2019-03-19] MEDS: LOSARTAN POTASSIUM 50 MG TABLET PO SCH (08:30)
--- NOTE | 2019-03-19 16:12 | P.PN ---
Subjective Date of Service: 03/19/19 Chief Complaint: Shortness of breath Patient seen and examined at bedside. No family at bedside. Chart reviewed and case discussed with nursing staff. Patient continues report shortness of breath, especially on exertion. She reports that she is unable to walk to her bathroom from the bed due to shortness of breath. Continues to be on oxygen at this time. States that she is not on any oxygen at home. Review of Systems 10-point ROS is otherwise unremarkable Physical Examination - Vital Signs Temperature: 97.6 F Blood Pressure: 104/72 Pulse: 111 Respirations: 20 Pulse Ox (%): 91 - Physical Exam General: Alert, In no apparent distress, Oriented x3, Obese HEENT: Atraumatic, PERRLA, EOMI Neck: Supple, JVD not distended Respiratory: Clear to auscultation bilaterally, Normal air movement Cardiovascular: Regular rate/rhythm, Normal S1 S2 Gastrointestinal: Normal bowel sounds, No tenderness Musculoskeletal: No tenderness Integumentary: No rashes Neurological: Normal speech, Normal tone, Normal affect Lymphatics: No axilla or inguinal lymphadenopathy Assessment And Plan - Current Problems (Diagnosis) (1) Dyspnea on exertion Current Visit: Yes Status: Acute Plan: This was likely secondary to progressive heart failure versus morbid obesity versus sleep apnea -echocardiogram normal -CT scan of the chest negative for any acute abnormalities, including pulmonary embolism. -continue IV diuresis with Lasix at this time. -continue fluid restriction and strict input/output monitor -continue medical management of possible heart failure at this time. -patient with a history of obstructive sleep apnea. States she has CPAP machine at home but has not used for about a year now. She will likely need outpatient sleep testing again, likely new set up for CPAP machine. Discussed importance of using CPAP machine -continue to wean off of oxygen (2) Orthopnea Current Visit: Yes Status: Acute (3) PND (paroxysmal nocturnal dyspnea) Current Visit: Yes Status: Acute (4) Type 2 diabetes mellitus Current Visit: Yes Status: Acute Plan: Continue Accu-Cheks and mild sliding scale at this time. Will adjust as needed. Qualifiers: Diabetes mellitus terminal gauger insulin use: without terminal gauger use Diabetes mellitus complication status: with hyperglycemia Qualified Code(s): E11.65 - Type 2 diabetes mellitus with hyperglycemia (5) Morbid obesity Current Visit: No Status: Chronic Plan: Dietitian consult placed -counseled on dietary modifications and lifestyle modifications - Plan DVT prophylaxis: Lovenox GI prophylaxis: Not needed Diet: Heart healthy/diabetic Disposition: Pending symptomatic improvement. Anticipate discharge in the next 24-48 hr pending clinical improvement.
[2019-03-20 00:33] LABS: CKMB Creatine Kinase MB 1.8 ng/mL (0.3-3.6); Troponin I 0.07 ng/mL (0.0-0.045)
[2019-03-20] MEDS: IPRATROPIUM BROM 0.5MG/2.5ML NEB SCH ×3 (02:00→13:55)
[2019-03-20] MEDS: ALBUTEROL 2.5 MG/3 ML NEB SOL NEB PRN (02:00)
[2019-03-20 06:18] LABS: Absolute Lymphocytes (CBC) 1.7 K/uL (0.7-4.9); Basophils % 0.8 % (0-1.3); Hematocrit 35.5 % (36.0-45.0); Lymphocytes % 17.7 % (15.3-44.8); MPV 8.5 fL (7.6-11.3); RBC Red Blood Cell Count 4.44 M/uL (3.86-4.86)
[2019-03-20 06:57] LABS: Albumin 3.1 g/dL (3.4-5.0); Bilirubin Total 0.6 mg/dL (0.2-1.0); Phosphorus 2.9 mg/dL (2.5-4.9); Potassium 3.8 mmol/L (3.5-5.1); Protein, Total 7.6 g/dL (6.4-8.2); Thyroid Stimulating Hormone 2.16 uIU/mL (0.360-3.740)
[2019-03-20 06:59] LABS: Troponin I 0.08 ng/mL (0.0-0.045)
[2019-03-20] MEDS: INSULIN -REGULAR HUMAN 50 UNIT/0.5 ML ML SQ SCH ×3 (07:30→16:30)
[2019-03-20] MEDS: TRAMADOL 37.5mg/APAP 325mg PER TAB PO SCH (09:00)
[2019-03-20] MEDS: ALLOPURINOL 100 MG TAB PO SCH (09:09)
[2019-03-20] MEDS: DOCUSATE NA 100 MG CAP PO SCH (09:09)
[2019-03-20] MEDS: LOSARTAN POTASSIUM 50 MG TABLET PO SCH (09:09)
[2019-03-20] MEDS: ASPIRIN 81 MG CHEWABLE TABLET PO SCH (09:09)
--- NOTE | 2019-03-20 09:48 | EKG ---
Test Date: 2019-03-19 Test Time: 23:36:23 Instructor Traffic Safety: RT Turner MEASUREMENT RESULTS: Intervals: Rate: 124 NV: QRSD: 92 QT: 434 QTc: 623 [place]: P: NV: QRS: 69 T: 77 INTERPRETIVE STATEMENTS: Atrial flutter with 2:1 AV conduction Low voltage QRS Possible Anterolateral infarct, age undetermined Abnormal ECG Compared to ECG 03/16/2019 20:56:54 Low QRS voltage now present Sinus tachycardia no longer present Myocardial infarct finding still present Electronically Signed On 03-20-19 09:47:24 CDT by Lam Beck
--- NOTE | 2019-03-20 11:04 | RAD REPORT ---
EXAM DESCRIPTION: RAD - Chest Single View - 03/20/2019 10:47 am CLINICAL HISTORY: respiratory distress Chest pain. COMPARISON: Chest Single View dated 03/17/2019; Chest Single View dated 03/16/2019; CHEST SINGLE VIEW dated 10/06/2015; CHEST SINGLE VIEW dated 10/02/2013 FINDINGS: Portable technique limits examination quality. Mild interstitial pulmonary edema suspected. The heart is mildly enlarged in size. No displaced fract ures. IMPRESSION: Mild CHF.
[2019-03-20 11:49] LABS: Arterial Blood Carboxyhemoglob 1.3 % (0-1.5); Blood Gas Oxyhemoglobin 89.9 % (94-97); Blood O2 Saturation 91.6 % (92-98.5)
--- NOTE | 2019-03-20 12:14 | CON ---
Chief Complaint: Dyspnea and chest pain. History Of Present Illness: Ms. Vasques has had dyspnea for many years. It is hard to treat her dysp lauren. The question is raised again as to whether she has coronary heart disease. Several years ago, we did a nuclear stress test and decided she did not have any significant CAD. She has normal ejecti on fraction, probably has severe diastolic dysfunction, some level of diastolic heart failure, underl [place] lung disease. She has morbid obesity. She is 350 pounds now. She has longstanding hypertensio n, diabetes, dyslipidemia, but does not use tobacco and has never had any vascular disease. Outpatient Medications: Losartan, amiloride, hydrochlorothiazide, metformin, Vytorin, aspirin, allop urinol, and tramadol. Allergies: SHE IS ALLERGIC TO CODEINE AND HYDROCODONE. Physical Examination: Vital Signs: 5 feet 4 inches, 351 pounds. Body mass index 60. HEENT: Normal. No carotid bruit. Lungs: No crackles or wheezes. Breath sounds are distant, but are bronchovesicular for normal. Heart: Does not reveal any significant murmur. Abdomen: Soft. Extremities: 1 to 2+ edema. Laboratory Data: A CT angio of the chest was done 4 days ago. It did not reveal pulmonary embolus o r any other significant heart or large blood vessel finding or lung findings. Her electrocardiogram shows a possible anterior infarct, it is an old finding. Her echocardiogram shows normal wall motion , normal ejection fraction. There is no LVH. It is a technically difficult study because of the pat ient's obesity. Impression: It could be coronary heart disease. Rather than electing to do a heart catheterization first, I recommend we do a pharmacologic nuclear stress test, will be done later today. If that is abnormal, we will talk to her about the ri sks and benefits of a cardiac cath. ALEJANDRO/MERLYN Voice ID: [id number] Report ID: [id number]
--- NOTE | 2019-03-20 12:31 | P.PN ---
Subjective Date of Service: 03/20/19 Chief Complaint: Shortness of breath Subjective: No new changes Patient seen and examined at bedside. No family at bedside. Chart reviewed and case discussed with nursing staff. Patient continues report shortness of breath, especially on exertion. She reports that she is unable to walk to her bathroom from the bed due to shortness of breath. Continues to be on oxygen at this time. States that she is not on any oxygen at home. Had episode of chest pain earlier this morning, resolved by the time I saw her at bedside. Review of Systems 10-point ROS is otherwise unremarkable Physical Examination - Vital Signs Temperature: 97.5 F Blood Pressure: 119/61 Pulse: 116 Respirations: 32 Pulse Ox (%): 92 - Physical Exam General: Alert, Oriented x3, Mild distress, Obese HEENT: Atraumatic, PERRLA, EOMI Neck: Supple, JVD not distended Respiratory: Dull Cardiovascular: Normal S1 S2, Irregular heart rate/rhythm (Tachycardic) Gastrointestinal: Normal bowel sounds, No tenderness Musculoskeletal: No tenderness Integumentary: No rashes Neurological: Normal speech, Normal tone, Normal affect Lymphatics: No axilla or inguinal lymphadenopathy - Studies Laboratory Data (last 24 hrs) 03/20/19 05:40: Sodium 140, Potassium 3.8, BUN 18, Creatinine 1.06, Glucose 120 H, Phosphorus 2.9, Magnesium 2.0, Total Bilirubin 0.6, AST 33, ALT 33, Alkaline Phosphatase 72 03/20/19 05:40: Troponin I 0.08 H 03/20/19 05:40: WBC 9.8, Hgb 11.7 L, Hct 35.5 L, Plt Count 238 03/20/19 05:00: Sodium Cancelled, Potassium Cancelled, BUN Cancelled, Creatinine Cancelled, Glucose Cancelled, Total Bilirubin Cancelled, AST Cancelled, ALT Cancelled, Alkaline Phosphatase Cancelled 03/19/19 : Sodium Cancelled, Potassium Cancelled, BUN Cancelled, Creatinine Cancelled, Glucose Cancelled, Total Bilirubin Cancelled, AST Cancelled, ALT Cancelled, Alkaline Phosphatase Cancelled 03/19/19 : WBC Cancelled, Hgb Cancelled, Hct Cancelled, Plt Count Cancelled 03/19/19 23:48: Troponin I 0.07 H Assessment And Plan - Current Problems (Diagnosis) (1) Dyspnea on exertion Current Visit: Yes Status: Acute Plan: This was likely secondary to diastolic heart failure versus morbid obesity ( restrictive) versus sleep apnea -echocardiogram normal EF, likely diastolic heart failure -CT scan of the chest negative for any acute abnormalities, including pulmonary embolism. -continue IV diuresis with Lasix at this time. Monitor blood pressures -continue fluid restriction and strict input/output monitor -continue medical management of possible heart failure at this time. -blood gases done today, fairly unremarkable except for pO2 of 62 -patient with a history of obstructive sleep apnea. States she has CPAP machine at home but has not used for about a year now. She will likely need outpatient sleep testing again, likely new set up for CPAP machine. Trial of CPAP in the hospital -pulmonology consulted, waiting recommendations -continue to wean off of oxygen (2) Orthopnea Current Visit: Yes Status: Acute (3) PND (paroxysmal nocturnal dyspnea) Current Visit: Yes Status: Acute (4) Type 2 diabetes mellitus Current Visit: Yes Status: Acute Plan: Continue Accu-Cheks and mild sliding scale at this time. Will adjust as needed. Qualifiers: Diabetes mellitus rodent exterminator insulin use: without rodent exterminator use Diabetes mellitus complication status: with hyperglycemia Qualified Code(s): E11.65 - Type 2 diabetes mellitus with hyperglycemia (5) Morbid obesity Current Visit: No Status: Chronic Plan: Dietitian consult placed -counseled on dietary modifications and lifestyle modifications - Plan DVT prophylaxis: Lovenox GI prophylaxis: Not needed Diet: Heart healthy/diabetic Disposition: Pending symptomatic improvement and pulmonology recommendations along with cardiology recommendations.
[2019-03-20 16:30] VITALS: O2SAT 95
[2019-03-20] MEDS ORDERED: METOPROLOL TARTRATE 5 MG/5 ML INJ IV PRN ×2 (16:31→16:52)
[2019-03-20 16:35] VITALS: TEMP 97.6
--- NOTE | 2019-03-20 16:38 | P.CNS ---
Date of Consult: 03/20/19 Reason for Consult: Resp failure Chief Complaint: Shortness of breath History of Present Illness: Patient is 64 years of age admitted with shortness of breath chest discomfort has not improved since admission despite bronchodilators she does have a history of obstructive sleep apnea noncompliant currently on CPAP she was hypoxic hypercapnic no evidence of thromboembolism denies any cough sputum hemoptysis fever or chills patient is also very tachycardic no prior history of obstructive airways disease Allergies codeine Allergy (Verified 10/24/16 11:03) stomach pain hydrocodone [Hydrocodone] Allergy (Verified 10/24/16 11:03) Nausea/Vomiting Home Medications: Amiloride/Hydrochlorothiazide [Amiloride HCl-Hctz 5-50 mg Tab] 1 each PO DAILY 07/23/12 Ezetimibe/Simvastatin [Vytorin 10-20 mg Tablet] 1 each PO BEDTIME 07/23/12 Losartan Potassium 50 mg PO DAILY 07/23/12 Metformin HCl [Glucophage*] 500 mg PO BID 07/23/12 Aspirin 81 mg PO DAILY 10/07/15 Cholecalciferol (Vitamin D3) [Vitamin D3] 1,000 unit PO DAILY 10/20/16 Acetaminophen [Tylenol Extra Strength] 500 mg PO BID PRN 03/17/19 Allopurinol [Zyloprim] 100 mg PO DAILY 03/17/19 Tramadol HCl/Acetaminophen [Ultracet Tablet] 1 each PO BID 03/17/19 - Past Medical/Surgical History Diabetic: Yes -: HTN -: Hyperlipedemia -: NIDDM -: Hernia -: Tubal ligation -: hernia repair - Family History Mother Medical History: Hypertension - Social History Smoking Status: Never smoker Alcohol use: No CD- Drugs: No Caffeine use: Yes Place of Residence: Home Review of Systems 10-point ROS is otherwise unremarkable Respiratory: Shortness of Breath Cardiovascular: Palpitations Physical Examination Temp Pulse Resp BP Pulse Ox 97.5 F 116 H 32 H 119/61 92 03/20/19 12:31 03/20/19 12:31 03/20/19 12:31 03/20/19 12:31 03/20/19 12:31 General: Alert, In no apparent distress, Oriented x3 HEENT: Atraumatic Neck: Supple Respiratory: Clear to auscultation bilaterally, Diminished Cardiovascular: No edema, Regular rate/rhythm, Normal S1 S2, Irregular heart rate/rhythm Gastrointestinal: Normal bowel sounds, Soft and benign Laboratory Data (last 24 hrs) 03/20/19 05:40: Sodium 140, Potassium 3.8, BUN 18, Creatinine 1.06, Glucose 120 H, Phosphorus 2.9, Magnesium 2.0, Total Bilirubin 0.6, AST 33, ALT 33, Alkaline Phosphatase 72 03/20/19 05:40: Troponin I 0.08 H 03/20/19 05:40: WBC 9.8, Hgb 11.7 L, Hct 35.5 L, Plt Count 238 03/20/19 05:00: Sodium Cancelled, Potassium Cancelled, BUN Cancelled, Creatinine Cancelled, Glucose Cancelled, Total Bilirubin Cancelled, AST Cancelled, ALT Cancelled, Alkaline Phosphatase Cancelled 03/19/19 23:48: Troponin I 0.07 H - Problems (1) Respiratory failure Current Visit: Yes Status: Acute Plan: Patient is 64 years of age admitted with shortness of breath hypoxic no evidence of thromboembolism normal echocardiogram labs reviewed he probably has underlying diastolic dysfunction possible atrial flutter maybe intermittent agree with rate control bronchodilators resume CPAP patient has a history of severe sleep apnea noncompliant slight negative fluid balance labs unremarkable the pressure is slightly low the IV Lopressor
[2019-03-20] MEDS ORDERED: LEVALBUTEROL 0.63 MG/3 ML NEB NEB PRN (16:41)
[2019-03-20] MEDS ORDERED: NA CHLORIDE 0.9% 500 ML IV ONE (17:00)
[2019-03-20 17:38] VITALS: BP 95/60
[2019-03-20] MEDS ORDERED: ENOXAPARIN 40 MG/0.4 ML SQ SCH (18:00)
[2019-03-20] MEDS ORDERED: METOPROLOL TARTRATE 5 MG/5 ML INJ IV ONE (18:00)
[2019-03-20] MEDS ORDERED: METOPROLOL TARTRATE 5 MG/5 ML INJ IV STA (18:53)
[2019-03-20] MEDS ORDERED: EPINEPHrine 1 MG/10 ML SYR ONE (19:15)
[2019-03-20] MEDS ORDERED: ARFORMOTEROL TARTRATE 15 MCG/2 ML VIAL.NEB NEB SCH (20:00)
[2019-03-20] MEDS ORDERED: CARVEDILOL 6.25 MG TAB PO SCH (21:00)
--- NOTE | 2019-03-20 21:59 | PN ---
Our plan is to do a nuclear stress test failed. She could not accommodate the machine for some reaso n, most likely her body weight. Two years ago, her stress test was normal and body weight was just 3 35 and now it is 351 and I guess the extra 16 pounds made the difference as far as doing a cardiac ca th on Ms. Vasques and being very reluctant to do it. I will begin the process of talking to her about it, perhaps it would be better to get some other noninvasive means of assessing her coronary circula tion first. Perhaps nuclear camera in [place] would be able to accommodate her. I will talk with so me of my colleagues. ALEJANDRO/MERLYN Voice ID: [id number] Report ID: [id number]
[2019-03-20] MEDS ORDERED: EPINEPHrine 1 MG/10 ML SYR IV ONE (23:44)
--- NOTE | 2019-03-21 16:47 | P.DS ---
Admission Date: 03/20/19 Discharge Date: 03/21/19 Disposition: Discharge Condition: Reason for Admission: Shortness of breath Consultations: Cardiology Pulmonology - Problems (1) Dyspnea on exertion Status: Acute (2) Orthopnea Status: Acute (3) PND (paroxysmal nocturnal dyspnea) Status: Acute (4) Type 2 diabetes mellitus Status: Acute Qualifiers: Diabetes mellitus moth exterminator insulin use: without custodial use Diabetes mellitus complication status: with hyperglycemia Qualified Code(s): E11.65 - Type 2 diabetes mellitus with hyperglycemia (5) Morbid obesity Status: Chronic Brief History of Present Illness: Patient is a 64-year-old female who came to the hospital with difficulty breathing. Her respiratory status has slowly worsened over the last couple of months. She said over the last week it has been much worse. She decided to come into the hospital for further evaluation. In the emergency room she had multiple diagnostic studies including chest x-ray and a CT scan of the chest. However, patient exhibits signs of CHF with orthopnea, PND, and dyspnea on exertion which has worsened over the last week. Patient also has some swelling in the lower extremities. The shortness of breath and swelling were more pronounced when she went on a vacation to [place]. She was having a hard time catching her breath. She decided to come into the hospital for further evaluation. The CT scan was completely unremarkable. There was no pneumonia, no pulmonary embolism, no cardiomegaly, no pulmonary edema, etc. Patient's BNP was also normal. Patient was also evaluated with an Echocardiogram, which was normal. She was started on IV diuresis but her blood pressures were on the lower end and therefore her lasix dosing was monitored closely. Blood gases were done also, which showed hypoxia but otherwise were fairly unremarkable. She was provided supoprtive care with oxygen. She was also started on CPAP here in the hospital as she had a hx of FABRIZIO and had not been using her CPAP machine for the past 5 yrs. Pulmonology and cardiology were consulted. Unfortunately, we were unable to do a stress test as patient was not able to fit in the machine. Patient had some tachycardia that started in the afternoon. She was given 2 mg IV lopressor. patient was wanting to sit in a chair further away from her bed and when she got to the chair, she had episodes of vomiting and a rapid response was called as she was light headed. I examined the patient at bedside. She was in a-fib with RVR, with HR up in 170s-180s. A 1 time IV Lopressor 5 mg was ordered but before it was given to her, a code blue was called as patient became unresponsive. Code was run for over 30 minutes but unfortunately we were not able to resuscitate Ms. Vasques. Vital Signs/Physical Exam: Temp Pulse Resp BP Pulse Ox 97.6 F 122 H 22 H 95/60 95 03/20/19 16:00 03/20/19 17:33 03/20/19 16:00 03/20/19 17:33 03/20/19 16:00 Laboratory Data at Discharge: WBC 9.8 K/uL (4.3-10.9) 03/20/19 05:40 Hgb 11.7 g/dL (12.0-15.0) L 03/20/19 05:40 Hct 35.5 % (36.0-45.0) L 03/20/19 05:40 Plt Count 238 K/uL (152-406) 03/20/19 05:40 PT 12.2 SECONDS (9.5-12.5) 03/16/19 21:05 INR 1.04 03/16/19 21:05 Sodium 140 mmol/L (136-145) 03/20/19 05:40 Potassium 3.8 mmol/L (3.5-5.1) 03/20/19 05:40 BUN 18 mg/dL (7-18) 03/20/19 05:40 Creatinine 1.06 mg/dL (0.55-1.3) 03/20/19 05:40 Glucose 120 mg/dL (74-106) H 03/20/19 05:40 Phosphorus 2.9 mg/dL (2.5-4.9) 03/20/19 05:40 Magnesium 2.0 mg/dL (1.8-2.4) 03/20/19 05:40 Total Bilirubin 0.6 mg/dL (0.2-1.0) 03/20/19 05:40 AST 33 U/L (15-37) 03/20/19 05:40 ALT 33 U/L (12-78) 03/20/19 05:40 Alkaline Phosphatase 72 U/L (45-117) 03/20/19 05:40 Troponin I 0.08 ng/mL (0.0-0.045) H 03/20/19 05:40 Home Medications: Amiloride/Hydrochlorothiazide [Amiloride HCl-Hctz 5-50 mg Tab] 1 each PO DAILY 07/23/12 Ezetimibe/Simvastatin [Vytorin 10-20 mg Tablet] 1 each PO BEDTIME 07/23/12 Losartan Potassium 50 mg PO DAILY 07/23/12 Metformin HCl [Glucophage*] 500 mg PO BID 07/23/12 Aspirin 81 mg PO DAILY 10/07/15 Cholecalciferol (Vitamin D3) [Vitamin D3] 1,000 unit PO DAILY 10/20/16 Acetaminophen [Tylenol Extra Strength] 500 mg PO BID PRN 03/17/19 Allopurinol [Zyloprim] 100 mg PO DAILY 03/17/19 Tramadol HCl/Acetaminophen [Ultracet Tablet] 1 each PO BID 03/17/19
== END 2019-03-20 23:45 | disposition expired | DRG 208 ==
LOC: ER 20:19 → ERHOLD 23:44 → 4TH 03-17 00:01 → OBSVTOIN 03-20 10:07
PROVIDERS: ADMIT Hospitalist; ATTEND Family Medicine
PROC: 5A1935Z Respiratory Ventilation, Less than 24 Consecutive Hours (ICD-10-PCS; principal; 2019-03-20)
PROC: 0BH17EZ Insertion of Endotracheal Airway into Trachea, Via Natural or Artificial Opening (ICD-10-PCS; 2019-03-20)
PROC: 5A12012 Performance of Cardiac Output, Single, Manual (ICD-10-PCS; 2019-03-20)
DX: J96.01 Acute respiratory failure with hypoxia (principal); Z68.44 Body mass index [BMI] 60.0-69.9, adult; I46.9 Cardiac arrest, cause unspecified; E11.65 Type 2 diabetes mellitus with hyperglycemia; E66.01 Morbid (severe) obesity due to excess calories; G47.33 Obstructive sleep apnea (adult) (pediatric); I48.91 Unspecified atrial fibrillation; E78.5 Hyperlipidemia, unspecified; I10 Essential (primary) hypertension; Z91.19 Patient's noncompliance with other medical treatment and regimen; Z79.84 Long term (current) use of oral hypoglycemic drugs; Z79.82 Long term (current) use of aspirin; Z88.5 Allergy status to narcotic agent
CPT/HCPCS: 36415; 71045; 71275; 80048; 80053; 80076; 81003; 82533; 82550; 82553; 82805; 82962; 83605; 83735; 83880; 84100; 84145; 84439; 84443; 84484; 85025; 85379; 85610; 90670; 93005; 93306; 94640; 94660; 94760; 96365; 96375; 97116; 97161; 97165; 97530; 99285; G0378; J0171; J1650; J1940; J2405; J3475; J7030; Q9967